=== PATIENT | female | born 1945 | race Caucasian/White ===

== ENCOUNTER → 2020-04-25 | Outpatient (CLI) | payer OTHER ==
[~2020-04-25] MED LIST: AMLODIPINE BESY10 MG PO; BENAZEPRIL HCL20 MG PO; CEFDINIR300 MG PO; COUMADIN 1MG TAB1 MG PO; CYCLOBENZAPRINE5 MG PO; ELIQUIS5 MG PO; GABAPENTIN300 MG PO; HYDROCODON-ACE1 EAC2 PO; ROPINIROLE HC0.25 MG PO; TRAMADOL HCL50 MG PO; TYLENOL 500 MG500 MG PO
== END ==
LOC: RAD 15:12
DX: M54.5 Low back pain (principal); M51.34 Other intervertebral disc degeneration, thoracic region; M43.16 Spondylolisthesis, lumbar region; M51.36 Other intervertebral disc degeneration, lumbar region
CPT/HCPCS: 72070; 72110

== ENCOUNTER → 2020-08-14 | Outpatient (CLI) | payer OTHER | LOC: KOH-I 13:47 | DX: R80.9 Proteinuria, unspecified (principal); N28.1 Cyst of kidney, acquired | CPT/HCPCS: 76775 ==

== ENCOUNTER → 2020-12-01 | Outpatient (CLI) | payer OTHER | LOC: KOH-I 11-26 11:30 | DX: M51.36 Other intervertebral disc degeneration, lumbar region (principal); M51.37 Other intervertebral disc degeneration, lumbosacral region | CPT/HCPCS: 72131 ==

== ENCOUNTER → 2021-05-17 | Day surgery (SDC) | payer MEDICARE, OTHER ==
[~2021-05-17] MED LIST changes: +CLARITIN10 M2 PO; +CRESTOR5 MG PO; +LOW DOSE ASPIRI81 MG PO; +METFORMIN HCL750 MG PO; +ZOLOFT25 MG PO
[2021-05-17 10:25] LABS: RED BLOOD COUNT 4.41 M/UL (4.00-5.10); WHITE BLOOD COUNT 7.4 K/UL (4.5-11.0)
[2021-05-17 10:52] LABS: BUN/CREATININE RATIO 17 (0-10)
== END | disposition home or self-care (01) ==
LOC: OR 08:35
PROVIDERS: Orthopaedic Surgery
DX: M53.3 Sacrococcygeal disorders, not elsewhere classified (principal); I10 Essential (primary) hypertension; E78.5 Hyperlipidemia, unspecified; E11.9 Type 2 diabetes mellitus without complications; Z96.653 Presence of artificial knee joint, bilateral; Z90.49 Acquired absence of other specified parts of digestive tract; Z90.710 Acquired absence of both cervix and uterus; Z88.5 Allergy status to narcotic agent; Z88.6 Allergy status to analgesic agent; Z88.8 Allergy status to other drugs, medicaments and biological substances; Z20.822 Contact with and (suspected) exposure to COVID-19; Z53.8 Procedure and treatment not carried out for other reasons; Z95.0 Presence of cardiac pacemaker
CPT/HCPCS: 36415; 71045; 80048; 81001; 82962; 85027; 85610; 85730; 93005; J0690; J1100; J1885; J2001; J2250; J2405; J2704; J2710; J3010; J3370; J7120

== ENCOUNTER → 2021-05-25 | Day surgery (SDC) | payer MEDICARE, OTHER | END | disposition home or self-care (01) | LOC: OR 05:17 | DX: M53.3 Sacrococcygeal disorders, not elsewhere classified (principal); I11.0 Hypertensive heart disease with heart failure; I50.9 Heart failure, unspecified; E78.5 Hyperlipidemia, unspecified; J44.9 Chronic obstructive pulmonary disease, unspecified; E11.9 Type 2 diabetes mellitus without complications; F17.200 Nicotine dependence, unspecified, uncomplicated; Z95.0 Presence of cardiac pacemaker; Z96.653 Presence of artificial knee joint, bilateral; Z88.5 Allergy status to narcotic agent; Z88.6 Allergy status to analgesic agent; Z88.8 Allergy status to other drugs, medicaments and biological substances; Z79.1 Long term (current) use of non-steroidal anti-inflammatories (NSAID); Z79.82 Long term (current) use of aspirin; Z79.84 Long term (current) use of oral hypoglycemic drugs; Z79.899 Other long term (current) drug therapy | CPT/HCPCS: 72202; 76000; 82962; C1776; J0690; J1040; J1100; J1885; J2001; J2370; J2405; J2704; J3010; J3370; J7120 ==

== ENCOUNTER → 2021-08-25 | Outpatient (CLI) | payer MEDICARE, OTHER ==
[~2021-08-25] MED LIST changes: +MULTI FOR HER1 EACH PO; +VITAMIN D-40010 MCG PO
[2021-08-25 11:02] LABS: HEMOGLOBIN 12.8 gm/dl (12.3-15.3); RED BLOOD COUNT 4.29 M/UL (4.00-5.10); WHITE BLOOD COUNT 8.1 K/UL (4.5-11.0)
[2021-08-25 11:27] LABS: BUN/CREATININE RATIO 24 (0-10)
== END ==
LOC: EDSTATUS 10:00 → OPSV2 10:00
PROVIDERS: Orthopaedic Surgery
DX: Z01.818 Encounter for other preprocedural examination (principal); M53.3 Sacrococcygeal disorders, not elsewhere classified; I10 Essential (primary) hypertension; E11.9 Type 2 diabetes mellitus without complications
CPT/HCPCS: 71046; 80048; 81001; 83036; 85025; 87077; 87081; 87086; 87186; 93005

== ENCOUNTER → 2021-09-23 | Outpatient (CLI) | payer MEDICARE, OTHER ==
[~2021-09-23] MED LIST changes: +TYLENOL EXTRA500 MG PO
[2021-09-23 13:08] LABS: HEMOGLOBIN 12.7 gm/dl (12.3-15.3); RED BLOOD COUNT 4.33 M/UL (4.00-5.10); WHITE BLOOD COUNT 7.5 K/UL (4.5-11.0)
[2021-09-23 13:23] LABS: BUN/CREATININE RATIO 19 (0-10)
== END ==
LOC: OPSV2 12:07 → EDSTATUS 12:30
PROVIDERS: Orthopaedic Surgery
DX: Z01.818 Encounter for other preprocedural examination (principal); M53.3 Sacrococcygeal disorders, not elsewhere classified
CPT/HCPCS: 36415; 80048; 81001; 85027; 87086; 93005

== ENCOUNTER → 2021-09-28 | Outpatient (CLI) | payer MEDICARE, OTHER ==
[~2021-09-28] MED LIST changes: +AMLODIPINE BESYL5 MG PO; +BENAZEPRIL HCL5 MG PO; +SERTRALINE HCL25 MG PO
== END ==
LOC: LAB 11:20
PROVIDERS: Orthopaedic Surgery
DX: Z01.812 Encounter for preprocedural laboratory examination (principal)
CPT/HCPCS: 36415; 80048; 86850; 86900; 86901

== ENCOUNTER → 2021-09-29 | Day surgery (SDC) | payer MEDICARE, OTHER ==
[~2021-09-29] VITALS: Ht 175.3 cm; Wt 93.4 kg
== END | disposition home or self-care (01) ==
LOC: OR 08-25 10:06 → EDSTATUS 09-08 07:30 → OR 09-08 07:30 → EDSTATUS 07:30 → OR 15:00
DX: M53.3 Sacrococcygeal disorders, not elsewhere classified (principal); I10 Essential (primary) hypertension; E78.5 Hyperlipidemia, unspecified; E11.9 Type 2 diabetes mellitus without complications; Z88.5 Allergy status to narcotic agent; Z88.8 Allergy status to other drugs, medicaments and biological substances; Z79.84 Long term (current) use of oral hypoglycemic drugs; Z79.899 Other long term (current) drug therapy
CPT/HCPCS: 72202; 76000; 82962; C1776; J0690; J1040; J1170; J2405; J2710; J3370; J7040

== ENCOUNTER → 2021-11-01 | Outpatient (CLI) | payer MEDICARE | LOC: KOH-I 09:11 | DX: K76.0 Fatty (change of) liver, not elsewhere classified (principal); N28.1 Cyst of kidney, acquired | CPT/HCPCS: 76700 ==